=== PATIENT | female | born 1945 | race Caucasian/White ===

== ENCOUNTER → 2016-12-17 | Outpatient (CLI) | payer MEDICARE ==
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
--- NOTE | 2016-12-18 13:13 | MM ---
Reason for exam: screening (asymptomatic). Last mammogram was performed 1 year ago. History: Patient is postmenopausal and had first child at age 33. Family history of breast cancer in paternal aunt and premenopausal breast cancer in maternal cousin at age 30. Benign excisional biopsy of the right breast, 1988. Benign excisional biopsy of the right breast, 1987. Taking estrogen for 21 years beginning at age 41. Physical Findings: A clinical breast exam by your physician is recommended on an annual basis and results should be correlated with mammographic findings. MG Screening Mammo w CAD Bilateral CC and MLO view(s) were taken. Prior study comparison: December 17, 2015, bilateral MG screening mammo w CAD. December 14, 2014, bilateral MG screening mammo w CAD. November 25, 2013, bilateral MG screening mammo w CAD. No suspicious abnormality. No significant changes when compared with prior studies. ASSESSMENT: Negative, BI-RAD 1 RECOMMENDATION: Routine screening mammogram of both breasts in 1 year.
== END | disposition home or self-care (01) ==
LOC: RADMAMWWP 08:56
PROVIDERS: ATTEND Obstetrics & Gynecology
DX: Z12.31 Encounter for screening mammogram for malignant neoplasm of breast (principal); Z78.0 Asymptomatic menopausal state
CPT/HCPCS: 77080; G0202

== ENCOUNTER → 2019-05-20 | Outpatient (CLI) | payer MEDICARE ==
[2019-05-20 08:41] LABS: HCT 42.4 % (34.0-46.0); HGB 13.4 gm/dL (11.4-16.0); MCH 30.4 pg (25.0-35.0); MCHC 31.7 g/dL (31.0-37.0); MCV 95.9 fL (80.0-100.0); Mean Platelet Volume 8.8; Platelet Count 192 k/uL (150-450); RBC 4.42 m/uL (3.80-5.40); RDW 12.3 % (11.5-15.5); WBC 6.2 k/uL (3.8-10.6)
[2019-05-20 16:45] LABS: African American GFR (CKD) 100.3 (60.0-200.0); Anion Gap 8.4 mmol/L (4.00-12.00); Carbon Dioxide 27.6 mmol/L (21.6-31.8); Non-African American GFR(CKD) 86.6 (60.0-200.0); Potassium 4.3 mmol/L (3.5-5.5)
== END | disposition home or self-care (01) ==
LOC: LABWHC1 07:29
PROVIDERS: ATTEND Internal Medicine Interventional Cardiology
DX: Z01.812 Encounter for preprocedural laboratory examination (principal); I25.10 Atherosclerotic heart disease of native coronary artery without angina pectoris; E78.00 Pure hypercholesterolemia, unspecified
CPT/HCPCS: 36415; 80051; 82565; 82947; 84520; 85027

== ENCOUNTER 2019-05-23 07:34 | Day surgery (SDC) | payer MEDICARE ==
[2019-05-19 14:32] VITALS: BMI 28.9
[~2019-05-23 07:34] MED LIST: ALPRAZolam 0.25 MG TAB PO PRN; ALPRAZolam 0.5 MG TAB PO PRN; ASPIRIN 325 MG TAB PO STA; NITROGLYCERIN SL TABS 0.4 MG TAB SUBLINGUAL PRN; SODIUM CHLORIDE 0.9% 1,000 ML in EMPTY BAG 1 BAG IV ONE
[2019-05-23 07:58] VITALS: RESP 16; TEMP 98.1
[2019-05-23 09:02] LABS: African American GFR (CKD) >90 (>60 ml/min/1.73 sqM); Anion Gap 7 mmol/L; Blood Urea Nitrogen 24 mg/dL (7-17); Calcium 9.9 mg/dL (8.4-10.2); Carbon Dioxide 25 mmol/L (22-30); Chloride 106 mmol/L (98-107); Glucose 93 mg/dL (74-99); Non-African American GFR(CKD) >90 (>60 ml/min/1.73 sqM); Potassium 4.2 mmol/L (3.5-5.1); Sodium 138 mmol/L (137-145)
[2019-05-23] MEDS ORDERED: LIDOCAINE 1% INJ 10MG/ML (20 ML MDV) ONE (09:05)
[2019-05-23] MEDS ORDERED: VERAPAMIL 2.5 MG/ML 2 ML AMP ONE ×2 (09:05→09:23)
[2019-05-23] MEDS ORDERED: MIDAZOLAM 2 MG/2 ML VIAL IV ONE (09:13)
[2019-05-23] MEDS ORDERED: LIDOCAINE 1% INJ 10MG/ML (20 ML MDV) SQ ONE (09:17)
[2019-05-23] MEDS: VERAPAMIL SYRINGE (5 MG/10 ML) INTRAARTER ONE ×4 (09:18→09:31)
[2019-05-23] MEDS ORDERED: HEPARIN SODIUM 1,000 UN/ML (10ML VL) IV ONE (09:20)
[2019-05-23] MEDS ORDERED: IOPAMIDOL-370 100ML BTL INJ ONE (09:31)
[2019-05-23] MEDS ORDERED: SODIUM CHLORIDE 0.9% 1,000 ML IV SCH (10:00)
--- NOTE | 2019-05-23 11:47 | CC ---
CARDIAC CATHETERIZATION REPORT DATE OF SERVICE: 05/23/2019. PROCEDURE: Left heart catheterization and coronary angiography. PERFORMED BY: Dr. Skyla Jett. Moderate conscious sedation time was 22 minutes. Patient was administered Versed. Oxygen saturation, hemodynamics and EKG were monitored closely. CLINICAL INFORMATION: Mrs. Sarah Cantu is a 74-year-old lady with history of hypertension, hyperlipidemia, recurrent persistent chest pains requiring visit to the emergency room. Her D-dimer was elevated. A CT angio was negative for any aortic pathology or pulmonary embolism. She continued to have chest pain and therefore was advised coronary angiography after due discussion with the patient and her regarding the rationale, risks, benefits, and options. They understood all details and wished to proceed with the procedure. PROCEDURE NOTE: Under local anesthesia and strict aseptic precautions, a 6-Wallisian introducer was placed in the right radial artery. She had some spasm, I used a Glidewire. JR4 and JL 3.5 catheters were used to perform coronary angiography and the same right catheter was used to check LV pressures. LV gram was not performed. CORONARY ANGIOGRAPHY FINDINGS: Left ventricular end-diastolic pressure was at 12 mmHg without any gradient across aortic valve. LV gram was not performed. Right Leno catheter was used to perform coronary angiography. RIGHT CORONARY ARTERY Technically dominant vessel. No significant disease. Distally it gives off a PDA and a small PLV. No significant disease, only minor irregularities were noted. LEFT MAIN CORONARY ARTERY: Short patent vessel which is free of significant disease that immediately bifurcates into LAD and circumflex. Left main itself is free of significant disease. LEFT ANTERIOR DESCENDING CORONARY ARTERY: Good caliber vessel, extends along the anterior wall, gives off septal and diagonal branches, runs all the way to the apex supplying a sizable amount of myocardium. No significant disease in the entire LAD system which is a large caliber, large distribution and curves over the apex to supply the inferoapical portion of left ventricle. LEFT POSTERIOR CIRCUMFLEX CORONARY ARTERY: Nondominant vessel, gives off a very high obtuse marginal, almost looks like a ramus, has minor irregularities, no significant disease. The circumflex vessel then continues in the AV groove and gives off a small distal posterolateral branch. High first obtuse marginal which almost looks like a ramus and the circumflex itself are free of significant disease, has only minor irregularities. Nondominant vessel. FINAL IMPRESSION: This patient has a right dominant system. Normal filling pressures. No gradient across aortic valve and no significant obstructive coronary artery disease. RECOMMENDATION: Findings were discussed with the patient and . Continued medical therapy with risk factor modification is advised. Patient will be discharged later on today if she remains stable. ALISSA / JOSIE: [id number] /
[2019-05-23 15:26] VITALS: BP 121/68; PULSE 58
== END 2019-05-23 16:20 | disposition home or self-care (01) ==
LOC: CATHCVL 07:34
PROVIDERS: ATTEND Internal Medicine Interventional Cardiology
DX: I20.0 Unstable angina (principal); I10 Essential (primary) hypertension; I73.00 Raynaud's syndrome without gangrene; E78.5 Hyperlipidemia, unspecified; E78.00 Pure hypercholesterolemia, unspecified; K21.9 Gastro-esophageal reflux disease without esophagitis; Z79.899 Other long term (current) drug therapy; Z88.0 Allergy status to penicillin; Z88.2 Allergy status to sulfonamides; Z88.5 Allergy status to narcotic agent
CPT/HCPCS: 93458; 80048; C1769 ×2; C1894; J2250; J2001; J1644; Q9967

== ENCOUNTER → 2019-08-01 | Outpatient (CLI) | payer MEDICARE ==
[2019-08-01 10:24] LABS: African American GFR (CKD) >90 (>60 ml/min/1.73 sqM); Blood Urea Nitrogen 25 mg/dL (7-17); Non-African American GFR(CKD) 89 (>60 ml/min/1.73 sqM)
--- NOTE | 2019-08-01 11:26 | CT ---
EXAMINATION TYPE: CT abdomen w con DATE OF EXAM: 08/01/2019 COMPARISON: None HISTORY: left sided abdominal pain CT DLP: 585.8 mGycm CONTRAST: CT scan of the abdomen is performed with Oral Contrast and with IV Contrast, patient injected with 1 00 mL of Isovue 300. FINDINGS: LUNG BASES-: Vague nodular densities seen scattered bilaterally at the lung bases totaling at least 1 0-[address] dedicated [address] of the chest further evaluation. No infiltrate. LIVER/GB: The gallbladder surgically absent. No space occupying hepatic lesion. Biliary tree is of normal caliber. PANCREAS: No inflammation. No distinct mass. SPLEEN: No splenic enlargement. No lesion seen. ADRENALS: No nodule. No thickening. KIDNEYS/BLADDER: No hydronephrosis. No nephrolithiasis. No distinct renal mass. Urinary bladder g rossly unremarkable. BOWEL: The stomach is virtually entirely intrathoracic in location. Visualized portions of the gastro intestinal tract appear of normal caliber. LYMPH NODES: No greater than 1cm abdominal or pelvic lymph nodes are appreciated. AORTA: No significant abnormality. OSSEOUS STRUCTURES: No significant abnormality is seen. OTHER: No significant additional abnormality is seen. IMPRESSION: 1. Acute process seen. See above.
== END | disposition home or self-care (01) ==
LOC: RADCTMAIN 09:29
PROVIDERS: ATTEND Internal Medicine Gastroenterology
DX: R10.12 Left upper quadrant pain (principal); Z01.89 Encounter for other specified special examinations
CPT/HCPCS: 82565; 84520; 74160; 36415; Q9967

== ENCOUNTER 2020-11-10 12:28 | Emergency (ER) | payer MEDICARE ==
[2020-11-10 12:32] VITALS: RESP 16; TEMP 97.6
[2020-11-10 12:51] LABS: Basophils % (A) 0 %; Eosinophils # (A) 0.2 k/uL (0-0.7); Eosinophils % (A) 1 %; HCT 42.1 % (34.0-46.0); HGB 13.8 gm/dL (11.4-16.0); Lymphocytes # (A) 1.8 k/uL (1.0-4.8); Lymphocytes % (A) 9 %; MCH 31.4 pg (25.0-35.0); MCHC 32.9 g/dL (31.0-37.0); MCV 95.4 fL (80.0-100.0); Mean Platelet Volume 9.3; Monocytes # (A) 1.1 k/uL (0-1.0); Monocytes % (A) 5 %; Neutrophils # (A) 16.3 k/uL (1.3-7.7); Neutrophils % (A) 83 %; Platelet Count 221 k/uL (150-450); RBC 4.41 m/uL (3.80-5.40); RDW 12.4 % (11.5-15.5); WBC 19.7 k/uL (3.8-10.6)
[2020-11-10 13:02] LABS: ALT 24 U/L (4-34); AST 40 U/L (14-36); African American GFR (CKD) >90 (>60 ml/min/1.73 sqM); Albumin 4.3 g/dL (3.5-5.0); Alkaline Phosphatase 79 U/L (38-126); Anion Gap 7 mmol/L; Blood Urea Nitrogen 23 mg/dL (7-17); Calcium 10.3 mg/dL (8.4-10.2); Carbon Dioxide 26 mmol/L (22-30); Chloride 106 mmol/L (98-107); Glucose 100 mg/dL (74-99); Magnesium 2.1 mg/dL (1.6-2.3); Non-African American GFR(CKD) 86 (>60 ml/min/1.73 sqM); Potassium 4.1 mmol/L (3.5-5.1); Sodium 139 mmol/L (137-145); Total Bilirubin 0.4 mg/dL (0.2-1.3); Total Protein 6.8 g/dL (6.3-8.2)
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
[2020-11-10 13:21] LABS: INR 0.9 (<1.2); Partial Thromboplastin Time 22.6 sec (22.0-30.0); Prothrombin Time 10.1 sec (9.0-12.0)
--- NOTE | 2020-11-10 14:22 | XR ---
EXAMINATION TYPE: XR chest 2V DATE OF EXAM: 11/10/2020 COMPARISON: 10/19/2012 HISTORY: 75 years Female. STUDY INDICATION GIVEN: Chest pain TECHNIQUE: PA and lateral chest radiographs FINDINGS AND IMPRESSION: No focal airspace disease, pneumothorax or pleural effusion. Normal cardiomediastinal silhouette. Air-fluid level in the posterior mediastinum similar to prior study, likely on the basis of gastroeso phageal hiatal hernia. Postsurgical changes in the proximal left humerus. No acute osseous abnormality.
[2020-11-10] MEDS ORDERED: ACETAMINOPHEN TAB 325 MG TAB PO STA (14:37)
--- NOTE | 2020-11-10 14:44 | CT ---
EXAMINATION TYPE: CT angio chest DATE OF EXAM: 11/10/2020 COMPARISON: None HISTORY: Shortness of breath and left sided chest pain. Post Op toe surgery on 11/09/2020. CT DLP: 266.3 mGycm Automated exposure control for dose reduction was used. CONTRAST: Performed with IV Contrast, patient injected with 100 mL of Isovue 370. There are 3-D post processed images. There is large hiatal hernia. There is intrathoracic stomach. Heart size is normal. There is no peric ardial effusion. There is no pleural effusion. The lungs are clear of consolidation. There are multip le small noncalcified peripheral pulmonary nodules. These have low attenuation and measure up to 9 mm . Thoracic aorta is intact. There is no aneurysm or dissection. There is normal contrast opacification of the pulmonary arteries. There are no filling defects. There are no hilar masses. There is no media stinal adenopathy. There is thoracolumbar kyphotic deformity with T12 anterior wedging 75%. Fracture not changed compare d to old CT scan of 08/01/2019. IMPRESSION: No evidence of pulmonary embolism. Multiple low density noncalcified peripheral pulmonary nodules als o present at the lung bases on the old CT scan of 08/01/2019. Clinical significance is not clear.
[2020-11-10 15:25] VITALS: BP 115/51; PULSE 56
== END 2020-11-10 15:25 | disposition home or self-care (01) ==
LOC: EC 12:28
DX: R09.1 Pleurisy (principal); R06.02 Shortness of breath; E78.5 Hyperlipidemia, unspecified; Z88.0 Allergy status to penicillin; Z88.2 Allergy status to sulfonamides
CPT/HCPCS: 36415; 93005; 85379; 83880; 80053; 83735; 84484; 85025; 85610; 85730; 71046; 71275; 99285; Q9967

== ENCOUNTER 2020-11-12 06:29 | Observation (INO) | payer MEDICARE ==
[2020-11-12] MEDS ORDERED: ASPIRIN 81 MG PO STA (06:37)
[2020-11-12] MEDS ORDERED: KETOROLAC 15 MG/ML 1 ML VIAL IVP STA (06:52)
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
[2020-11-12 07:09] LABS: Basophils # (A) 0.1 k/uL (0-0.2); Basophils % (A) 1 %; Eosinophils # (A) 0.2 k/uL (0-0.7); Eosinophils % (A) 3 %; HCT 41.8 % (34.0-46.0); HGB 14.2 gm/dL (11.4-16.0); Lymphocytes # (A) 2.6 k/uL (1.0-4.8); Lymphocytes % (A) 30 %; MCH 32.3 pg (25.0-35.0); MCHC 33.9 g/dL (31.0-37.0); MCV 95.5 fL (80.0-100.0); Monocytes # (A) 0.7 k/uL (0-1.0); Monocytes % (A) 9 %; Neutrophils # (A) 4.7 k/uL (1.3-7.7); Neutrophils % (A) 55 %; Platelet Count 208 k/uL (150-450); RBC 4.38 m/uL (3.80-5.40); RDW 12.5 % (11.5-15.5); WBC 8.6 k/uL (3.8-10.6)
--- NOTE | 2020-11-12 07:19 | XR ---
EXAMINATION TYPE: XR chest 2V DATE OF EXAM: 11/12/2020 COMPARISON: 11/10/2020 HISTORY: 75-year-old female chest pain TECHNIQUE: PA and lateral views FINDINGS: Partially visualized plate and screw fixation left humeral shaft. Heart is upper limits of normal in size. Aorta and pulmonary vasculature within normal limits. No consolidation or pleural effusion. Rou nded retrocardiac opacity is redemonstrated. Severe kyphotic deformity near the thoracolumbar junctio n is also redemonstrated. Cholecystectomy clips. IMPRESSION: Moderate to large hiatal hernia redemonstrated. No definite acute process. Chronic vertebral compression injury near the thoracolumbar junction with associated kyphotic deformi ty.
[2020-11-12 07:27] LABS: INR 0.9 (<1.2); Partial Thromboplastin Time 22.9 sec (22.0-30.0); Prothrombin Time 9.7 sec (9.0-12.0)
[2020-11-12 07:33] LABS: ALT 26 U/L (4-34); AST 39 U/L (14-36); African American GFR (CKD) >90 (>60 ml/min/1.73 sqM); Alkaline Phosphatase 80 U/L (38-126); Anion Gap 5 mmol/L; Blood Urea Nitrogen 22 mg/dL (7-17); Carbon Dioxide 31 mmol/L (22-30); Chloride 103 mmol/L (98-107); Glucose 95 mg/dL (74-99); Lipase 360 U/L (23-300); Magnesium 1.8 mg/dL (1.6-2.3); Non-African American GFR(CKD) 89 (>60 ml/min/1.73 sqM); Potassium 4.6 mmol/L (3.5-5.1); Sodium 139 mmol/L (137-145); Total Bilirubin 0.3 mg/dL (0.2-1.3); Total Protein 6.4 g/dL (6.3-8.2)
[2020-11-12] MEDS ORDERED: NITROGLYCERIN SL TABS 0.4 MG TAB SUBLINGUAL PRN (08:14)
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
[2020-11-12] MEDS: FAMOTIDINE 20 MG TAB PO SCH (22:31)
[2020-11-13 08:15] VITALS: BP 123/77; PULSE 72; RESP 17; TEMP 98.5
[2020-11-13] MEDS: FAMOTIDINE 20 MG TAB PO SCH (08:50)
[2020-11-13] MEDS ORDERED: HEPARIN SODIUM,PORCINE/PF 5,000 UNIT/0.5 ML SYRINGE SQ SCH (09:00)
[2020-11-13] MEDS ORDERED: ASPIRIN 81 MG PO SCH (09:00)
[2020-11-13] MEDS ORDERED: ASPIRIN 325 MG TAB PO SCH (09:00)
[2020-11-13] MEDS ORDERED: METOPROLOL SUCCINATE (ER) 25 MG TAB.ER.24H PO SCH (09:00)
[2020-11-13] MEDS ORDERED: ATORVASTATIN 20 MG TAB PO SCH (09:00)
[2020-11-13] MEDS ORDERED: MULTIVITAMINS, THERA 1 EACH TAB PO SCH (09:00)
--- NOTE | 2020-11-13 09:58 | ECHOF ---
Referral Reason:chest pain MEASUREMENTS -------- HEIGHT: 154.9 cm WEIGHT: 57.6 kg BP: RVIDd: 2.3 cm (< 3.3) IVSd: 0.9 cm (0.6 - 1.1) LVIDd: 3.3 cm (3.9 - 5.3) LVPWd: 1.1 cm (0.6 - 1.1) IVSs: 1.3 cm LVIDs: 1.8 cm LVPWs: 1.6 cm Ao Diam: 3.0 cm (2.0 - 3.7) AV Cusp: 1.9 cm (1.5 - 2.6) LA Diam: 3.5 cm (2.7 - 3.8) MV EXCURSION: 10.716 mm (> 18.000) MV EF SLOPE: 85 mm/s (70 - 150) EPSS: 0.6 cm MV E Louis: 1.16 m/s MV DecT: 244 ms MV A Louis: 1.03 m/s MV E/A Ratio: 1.13 RAP: 5.00 mmHg RVSP: 45.50 mmHg FINDINGS -------- This was a technically good study. The left ventricular size is normal. There is mild concentric left ventricular hypertrophy. Overa ll left ventricular systolic function is normal with, an EF between 55 - 60 %. The diastolic fillin g pattern is normal for the age of the patient 18.34. The right ventricle is normal in size. The left atrial size is normal. Normal LA size by volume 22+/-6 ml/m2. The right atrial size is normal. The aortic valve is trileaflet and appears structurally normal. The mitral valve is normal. Mild mitral regurgitation is present. The tricuspid valve appears structurally normal. Mild tricuspid regurgitation present. Right vent ricular systolic pressure is normal at < 35 mmHg. There is no pulmonic regurgitation present. The aortic root size is normal. Normal inferior vena cava with normal inspiratory collapse consistent with estimated right atrial pre ssure of 5 mmHg. There is no pericardial effusion. CONCLUSIONS -------- 1. The left ventricular size is normal. 2. There is mild concentric left ventricular hypertrophy. 3. Overall left ventricular systolic function is normal with, an EF between 55 - 60 %. 4. The diastolic filling pattern is normal for the age of the patient 18.34 5. Mild mitral regurgitation is present. 6. Mild tricuspid regurgitation present. 7. There is no pericardial effusion. CALENDER RUNNER: Marily Pearson RDCS
--- NOTE | 2020-11-13 10:29 | P.PN ---
Progress Note - Text Progress Note Date: 11/13/20 This is a very pleasant 75-year-old female patient with hypertension and dyslipidemia and recent foot surgery was admitted to the hospital and we consulted for atypical chest discomfort was not consistent with angina. The patient underwent a workup including troponin came in to be unremarkable and EKG did not show any significant ST or T-wave abnormalities. She also underwent an echo which showed normal left ventricular systolic function. She was seen this morning beach she remains asymptomatic from a cardiovascular standpoint of view. Severe underlying coronary artery disease to be ruled out probably with a stress test as an outpatient. At this point and from a cardiovascular standpoint of view, the patient can be discharged home as far as she is staying asymptomatic in terms of chest pain or chest discomfort or shortness of breath. Please note that her lipase came in to be elevated. She needs to be ruled out for any gastrointestinal etiology for her discomfort first.
[2020-11-13 11:30] LABS: African American GFR (CKD) 84.8 (60.0-200.0); Anion Gap 7.7 mmol/L (4.00-12.00); BUN/Creat Ratio 22.5 Ratio (12.00-20.00); Calcium 9.6 mg/dL (8.7-10.3); Carbon Dioxide 26.3 mmol/L (21.6-31.8); Chol/HDL Ratio 2.57; LDL Cholesterol,Calculated 96.2 mg/dL (0.0-131.0); Non-African American GFR(CKD) 73.1 (60.0-200.0); VLDL Calculation 13.8 mg/dL (5.00-40.00)
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
== END 2020-11-13 15:13 | disposition home or self-care (01) ==
LOC: EC 06:29 → 6NMEDSUR 08:58
PROVIDERS: ADMIT Hospitalist; ATTEND Hospitalist
DX: R07.89 Other chest pain (principal); K85.90 Acute pancreatitis without necrosis or infection, unspecified; K44.9 Diaphragmatic hernia without obstruction or gangrene; I10 Essential (primary) hypertension; E78.5 Hyperlipidemia, unspecified; J45.909 Unspecified asthma, uncomplicated; R10.13 Epigastric pain; R00.1 Bradycardia, unspecified; I45.10 Unspecified right bundle-branch block; Z88.5 Allergy status to narcotic agent; Z88.0 Allergy status to penicillin; Z88.2 Allergy status to sulfonamides; Z88.7 Allergy status to serum and vaccine; Z79.82 Long term (current) use of aspirin; Z79.899 Other long term (current) drug therapy; Z90.710 Acquired absence of both cervix and uterus; Z96.653 Presence of artificial knee joint, bilateral; Z82.49 Family history of ischemic heart disease and other diseases of the circulatory system; Z82.69 Family history of other diseases of the musculoskeletal system and connective tissue; Z80.9 Family history of malignant neoplasm, unspecified
CPT/HCPCS: 93005 ×2; 96374; 99285; 36415; 94760; 93306; 83880; 80061; 80053; 80048; 83690; 83735; 84484; 85025; 85610; 85730; 71046; G0378 ×2; J1885

== ENCOUNTER 2020-12-16 21:18 | Emergency (ER) | payer MEDICARE ==
[2020-12-16 21:24] VITALS: TEMP 97.9
[2020-12-16] MEDS ORDERED: ASPIRIN 81 MG PO STA (21:42)
[2020-12-16] MEDS ORDERED: fentaNYL (PF) 50 MCG/ML 2 ML AMP IVP STA ×2 (21:43→23:18)
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
[2020-12-16 22:12] LABS: Basophils # (A) 0.1 k/uL (0-0.2); Basophils % (A) 0 %; Eosinophils # (A) 0.2 k/uL (0-0.7); Eosinophils % (A) 2 %; HCT 44.7 % (34.0-46.0); HGB 14.7 gm/dL (11.4-16.0); Lymphocytes # (A) 2.4 k/uL (1.0-4.8); Lymphocytes % (A) 21 %; MCHC 32.9 g/dL (31.0-37.0); MCV 97.2 fL (80.0-100.0); Mean Platelet Volume 8.9; Monocytes # (A) 0.7 k/uL (0-1.0); Monocytes % (A) 6 %; Neutrophils % (A) 69 %; Platelet Count 214 k/uL (150-450); RBC 4.59 m/uL (3.80-5.40); RDW 13.2 % (11.5-15.5); WBC 11.6 k/uL (3.8-10.6)
[2020-12-16 22:22] LABS: ALT 23 U/L (4-34); AST 35 U/L (14-36); African American GFR (CKD) >90 (>60 ml/min/1.73 sqM); Albumin 4.4 g/dL (3.5-5.0); Alkaline Phosphatase 84 U/L (38-126); Anion Gap 7 mmol/L; Blood Urea Nitrogen 27 mg/dL (7-17); Calcium 9.8 mg/dL (8.4-10.2); Carbon Dioxide 29 mmol/L (22-30); Chloride 102 mmol/L (98-107); Glucose 103 mg/dL (74-99); Non-African American GFR(CKD) 89 (>60 ml/min/1.73 sqM); Sodium 138 mmol/L (137-145); Total Bilirubin 0.1 mg/dL (0.2-1.3); Total Protein 6.9 g/dL (6.3-8.2)
[2020-12-16 22:26] LABS: INR 0.9 (<1.2); Partial Thromboplastin Time 23.2 sec (22.0-30.0); Prothrombin Time 9.5 sec (9.0-12.0)
--- NOTE | 2020-12-16 23:28 | CT ---
EXAMINATION TYPE: CT chest angio for PE DATE OF EXAM: 12/16/2020 COMPARISON: 11/10/2020 HISTORY: pe CT DLP: 274.4 mGycm Automated exposure control for dose reduction was used. CONTRAST: Performed with IV Contrast, patient injected with 50 mL of Isovue 370. There are 3-D post processed images. There is large hiatal hernia. There is no mediastinal adenopathy. There are no hilar masses. There is normal contrast opacification of the pulmonary arteries. There are no filling defects. There is no p leural effusion. Heart size is normal. There is no pericardial effusion. Thoracic aorta is intact. There is no aneurysm or dissection. There is some linear interstitial infiltrate and atelectasis at the left posterior lung base. There a re scattered low-density nodules in the periphery of both lungs and more concentrated in the right lo wer lobe posteriorly. These measure up to 1 cm without calcification. There is thoracolumbar kyphotic deformity with anterior wedging of T12 vertebra 75%. IMPRESSION: No evidence of pulmonary embolism. Stable multiple low density small peripheral pulmonary nodules. Intrathoracic stomach without change. There is some new linear infiltrate and atelectasis in the left lower lobe compared to old exam.
[2020-12-17] MEDS ORDERED: ACET/COD 300 MG/30 MG STARTER PACK 6 TAB BTL PO STA (00:15)
[2020-12-17 00:36] VITALS: BP 108/58; PULSE 76; RESP 18
== END 2020-12-17 00:36 | disposition home or self-care (01) ==
LOC: EC 21:18
DX: R07.81 Pleurodynia (principal); E78.5 Hyperlipidemia, unspecified; J45.909 Unspecified asthma, uncomplicated; Z79.1 Long term (current) use of non-steroidal anti-inflammatories (NSAID); Z79.82 Long term (current) use of aspirin; Z79.899 Other long term (current) drug therapy; Z88.0 Allergy status to penicillin; Z88.2 Allergy status to sulfonamides; Z82.49 Family history of ischemic heart disease and other diseases of the circulatory system
CPT/HCPCS: 36415; 93005; 85379; 80053; 83735; 84484; 85025; 85610; 85730; 71275; 96374; 96376; 99285; J3010; Q9967

== ENCOUNTER → 2022-04-09 | Outpatient (CLI) | payer MEDICARE ==
--- NOTE | 2022-04-10 09:07 | MR ---
EXAMINATION TYPE: MR shoulder LT wo con DATE OF EXAM: 04/09/2022 COMPARISON: Outside left shoulder x-ray March 25, 2022 HISTORY: LEFT SHOULDER PAIN, FALL injury. TECHNIQUE: Multiplanar, multisequence imaging of the left shoulder is performed without contrast. FINDINGS: Rotator Cuff: Distal supraspinatus and infraspinatus tendons are intact. The rotator cuff muscle bulk is preserved. Acromioclavicular Joint: Mild to moderate narrowing with moderate to severe superior capsular hypertr ophy. Underlying fat plane is maintained. Minimal spurring. Distal acromion morphology is unremarkabl e. Glenohumeral Joint: Small joint effusion. Tiny spur inferior medial humeral head coronal image 16. Labrum: The labrum appears grossly intact given limitation of non-arthrogram study. Biceps Tendon: The long head of biceps is in normal location within bicipital groove. Some increased central signal noted axial image 13 extending towards the labral anchor. Bone marrow signal: Susceptibility artifact from metallic hardware in the left proximal humerus is n oted. Other: No additional significant abnormality is appreciated. IMPRESSION: 1. Partial tearing/tendinosis along the long head of biceps tendon. No rotator cuff tear is seen. Pos tsurgical change to left humerus noted.
== END | disposition home or self-care (01) ==
LOC: RADMRIMAIN 11:22
PROVIDERS: ATTEND Orthopaedic Surgery
DX: M75.112 Incomplete rotator cuff tear or rupture of left shoulder, not specified as traumatic (principal)

== ENCOUNTER → 2022-05-16 | Outpatient (CLI) | payer MEDICARE ==
[2022-05-16 18:52] LABS: Basophils # (A) 0.05 X 10*3/uL (0.00-0.10); Basophils % (A) 0.6 %; Eosinophils # (A) 0.17 X 10*3/uL (0.04-0.35); Eosinophils % (A) 1.9 %; HCT 41.4 % (37.2-46.3); HGB 13.2 g/dL (12.0-15.0); Immature Grans, Automated 0.2 %; Lymphocytes # (A) 1.85 X 10*3/uL (0.90-5.00); Lymphocytes % (A) 20.8 %; MCH 30.9 pg (27.0-32.0); MCHC 31.9 g/dL (32.0-37.0); Mean Platelet Volume 11.7 fL (9.5-12.2); Monocytes # (A) 0.73 X 10*3/uL (0.20-1.00); Monocytes % (A) 8.2 %; NRBC Per 100 WBC 0 /100 WBCS (0.0-0.0); Neutrophils # (A) 6.06 X 10*3/uL (1.80-7.70); Neutrophils % (A) 68.3 %; Platelet Count 219 X 10*3/uL (140-440); RBC 4.27 X 10*6/uL (4.10-5.20); RDW 13.2 % (11.5-14.5); WBC 8.88 X 10*3/uL (4.50-10.00)
[2022-05-16 18:55] LABS: African American GFR (CKD) 98.2 (60.0-200.0); Anion Gap 8.4 mmol/L (10.00-18.00); BUN/Creat Ratio 42.43 Ratio (12.00-20.00); Blood Urea Nitrogen 29.7 mg/dL (9.0-27.0); Calcium 9.8 mg/dL (8.7-10.3); Carbon Dioxide 27.6 mmol/L (20.0-27.5); Non-African American GFR(CKD) 84.8 (60.0-200.0); Potassium 4.4 mmol/L (3.5-5.5)
== END | disposition home or self-care (01) ==
LOC: LABPAT 11:28
PROVIDERS: ATTEND Orthopaedic Surgery
DX: Z01.812 Encounter for preprocedural laboratory examination (principal); I49.1 Atrial premature depolarization; I21.09 ST elevation (STEMI) myocardial infarction involving other coronary artery of anterior wall; R94.31 Abnormal electrocardiogram [ECG] [EKG]
CPT/HCPCS: 80048; 85025; 93005